=== PATIENT | male | born 1995 | race Caucasian/White ===

== ENCOUNTER 2022-10-27 08:24 | Outpatient (REF) | payer OTHER, SELFPAY ==
[2022-10-27 10:59] LABS: Alanine Aminotransferase 29 U/L (0-40); Albumin Level 4.8 g/dL (3.5-5.0); Alkaline Phosphatase 44 U/L (39-117); Anion Gap 12 (12-20); Aspartate Amino Transferase 22 U/L (5-37); Blood Urea Nitrogen 23 mg/dL (9-16); Calcium 9.9 mg/dL (8.4-10.2); Carbon Dioxide 28 mmol/L (22-29); Chloride 102 mmol/L (96-108); Cholesterol 220 mg/dL; Estimated Glomerular Filt Rate > 60; Glucose Fasting 86 mg/dL (60-99); HDL Cholesterol 77 mg/dL; LDL Cholesterol Calculated 134 mg/dl; Potassium 4.8 mmol/L (3.3-5.1); Sodium 137 mmol/L (135-145); Total Protein 7.2 g/dL (6.5-8.0); Triglycerides 49 mg/dL
[2022-10-27 11:10] LABS: Appearance Urine Turbid; Color Urine Yellow; Glucose Urine UA Negative (Negative); Leukocyte Esterase Urine Negative (Negative); Nitrite Urine Negative (Negative); Specific Gravity - Urine 1.025 (1.005-1.025); Urine Blood Negative (Negative); Urine Ketones Negative (Negative); Urine Protein Negative (Neg-Trace)
[2022-10-27 11:29] LABS: Bilirubin Total 1.4 mg/dL (0.0-1.0); TSH reflex Free T4 1.28 uIU/mL (0.32-4.0)
[2022-10-28 09:08] LABS: Syphilis Screen Nonreactive (Nonreactive)
[2022-10-28 09:22] LABS: HBS Num1 0.27 mIU/mL (0-7.99); HBc Num1 0.08 S/CO (0.00-0.79); HIV AB/AG Nonreactive (Nonreactive); HIV Num 1 0.07 S/CO (0.00-0.99); Hepatitis B Core Antibody Nonreactive (Nonreactive); Hepatitis B Surface Antigen Negative (Negative); ~HepC Num1 0.16 S/CO (0.00-0.79); ~Hepatitis B Surface Antibody NONREACTIVE (Nonreactive); ~Hepatitis C Antibody Nonreactive (Nonreactive)
== END 2022-10-27 08:25 | disposition home or self-care (01) ==
LOC: HO.WFDLDS 08:24
PROVIDERS: Visit Provider Family Medicine
DX: Z00.00 Encounter for general adult medical examination without abnormal findings (principal); Z11.4 Encounter for screening for human immunodeficiency virus [HIV]; Z11.3 Encounter for screening for infections with a predominantly sexual mode of transmission
CPT/HCPCS: 36415; 80053; 80061; 81003; 84443; 86704; 86706; 86780; 86803; 87340; 87389

== ENCOUNTER 2023-08-18 15:31 | Outpatient (AMB) | payer OTHER, SELFPAY ==
--- NOTE | 2023-08-18 15:36 | MHC.PC.OV ---
Vital Signs 08/18/23 15:37 Height 5 ft 10 in Weight 171 lb 3 oz BMI 24.6 BP 114/70 Blood Pressure Location Rt brachial Position Sitting Respiration 13 Pulse 53 Pulse Source Pulse Oximeter Temp 97.7 F Temp Source Temporal Artery Scan Pulse Oximetry (%) 99 Oxygen Delivery Method Room Air Intake Visit Reasons: Back Pain Dining Room Host/Hostess Required: No Accompanied by: Self / Same As Patient Allergies No Known Allergies Allergy (Verified 08/18/23 16:07) Medication List - Last Reconciled 08/18/23 by Pino Hansen CNP No Known Home Meds Tobacco use date assessed: 08/18/23 Dental Screening Dental Screen Date: 08/18/23 Did you have a dental visit in the last 12 months?: Yes Did you have a dental problem in the last 6 months where you did not have access to dental care?: No Was dental information given to patient?: Patient has dentist HPI HPI Comments History of Present Illness Details 28-year-old male presents with intermittent complaints of lower left back pain. He notes that the pain has been ongoing off and on for the past 2 years. He states that the pain has progressively worsened in the past 3-4 weeks. His pain is worse with lifting objects or prolonged repetitive movements. He states that he has not been taking pain medication. He denies tingling, numbness, or loss of sensation. He denies consistent heavy lifting. He denies fall, injury, or trauma. He was evaluated by his PCP for similar pain in November 2022. 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 Andrew L. Jackelyn Camarena, Roman Navarro and colleagues, with an educational nicki from [employer]. Review of Systems Const Details: Const Denies chills, Denies fatigue, Denies fever(s), Denies headache(s) and Denies weakness ENT Denies dizziness and Denies headache(s) Card Denies chest pain, Denies lightheadedness, Denies dyspnea and Denies other (Palpitations) Resp Denies cough, Denies dyspnea, Denies wheezing and Denies other ( shortness of breath) GI Denies abdominal pain, Denies melena, Denies hematochezia, Denies change in bowel habits, Denies dyspepsia and Denies nausea Denies hematuria and Denies dysuria Musc Reports as per HPI Skin/Breast Denies rash, Denies unusual bruising and Denies wounds Neuro Denies abnormal gait, Denies dizziness, Denies headache(s), Denies memory loss, Denies numbness, Denies Sensory deficit (Neuro), Denies tingling and Denies weakness Psych Denies anxiety, Denies depression, Denies memory loss Endo Denies cold intolerance, Denies fatigue, Denies heat intolerance, Denies polydipsia and Denies polyuria Aller/Immun Denies wheezing Physical exam (Primary Care) Vital Signs: Last Vital Signs Temp 97.7 F 08/18/23 15:37 Pulse 53 08/18/23 15:37 Resp 13 08/18/23 15:37 BP 114/70 08/18/23 15:37 Pulse Ox 99 08/18/23 15:37 Oxygen Delivery Method Room Air 08/18/23 15:37 BMI result Body Mass Index 24.6 Tobacco/Smoking Status: Tobacco use Status Tobacco use date assessed 08/18/23 08/18/23 15:44 Patient Tobacco Use Status Never used Tobacco 08/18/23 15:44 e-Cigarette/Vaping Use Never Used 08/18/23 15:44 Thrive Assessment: Date of Thrive Assessment Date Thrive assessed 11/03/22 08/18/23 15:44 Const Other: General: no acute distress and well developed Nutritional Appearance: well nourished Orientation/consciousness: patient oriented x3 HENMT Head: Yes normocephalic and Yes atraumatic Eyes General: appearance normal, both eyes and all related structures Pupils: Equal, round and reactive pupils present EOM: EOMs intact bilaterally Resp Effort & Inspection: normal respiratory effort Auscultation: clear to auscultation bilaterally Cardio Rate: regular rate Rhythm: regular rhythm Heart sounds: S1 normal heart sound present, S2 normal heart sound present, no gallops, no murmurs and no rubs GI Palpation (GI): No Abdominal aortic bruit present, Soft to palpation, nontender, No hepatosplenomegaly present and No Rebound tenderness present Auscultation: normal bowel sounds General: Yes no CVA tenderness Back/Spine/Pelvis Back: no CVA tenderness Cervical Spine: cervical ROM normal and No Cervical spine tenderness Thoracic/Lumbar Spine: thoraco-lumbar ROM normal, No pain with thoraco-lumbar ROM, No thoracic spinal tenderness and tenderness to palpation of the lumbar spine and left lower back Extrem General: Yes normal to inspection, No edema and No calf tenderness Negative straight leg raise bilaterally Skin General: warm and dry. Normal skin color. Normal skin turgor Lesions: no lesions Rashes: no rashes Trauma: no lacerations or abrasions Wounds: no wounds Nails: normal Neuro General: patient oriented x3, gait normal and no focal neuro deficit Cranial nerves: Yes Equal, round and reactive pupils present Cognition (Neuro): normal cognition Gait exam (Neuro): Normal gait present Sensory Exam: No Sensory deficit (Neuro) Psych Appearance: grossly normal Affect: normal affect Attitude: cooperative Thought process: Normal thought process present Assessment and Plan Assessment & Plan (1) Chronic back pain: Code(s): M54.9 - Dorsalgia, unspecified; G89.29 - Other chronic pain Qualifiers: Back pain location: low back pain Back pain laterality: left Sciatica presence: without sciatica Qualified Code(s): M54.50 - Low back pain, unspecified; G89.29 - Other chronic pain Plan: Reports chronic back pain which has worsened in the past 3-4 weeks Tenderness to palpation of the lumbar spine and left lower back Likely muscular pain although disc disease and arthritis is possible Naproxen ordered. Take as prescribed Stretching and warm/cool compresses encouraged Referred to physical therapy Follow-up with PCP if symptoms persist or worsen Verbalized understanding and agreed with treatment plan. Orders: Orders PT Evaluation and Treatment Today G89.29 - Other chronic pain, M54.9 - Dorsalgia, unspecified Medications: New naproxen 500 mg PO BID PRN 60 tabs 0RF pain Coding Level of Care Code Est Pt Level 4 (90473) Diagnoses Chronic left-sided low back pain without sciatica M54.50; G89.29 Back pain location: low back pain Back pain laterality: left Sciatica presence: without sciatica
[2023-08-18 15:37] VITALS: BP 114/70; PULSE 53; RESP 13; TEMP 36.5; O2SAT 99; BMI 24.6
== END 2023-08-18 16:21 | disposition home or self-care (01) ==
PROVIDERS: PCP Family Medicine; Visit Provider Nurse Practitioner Family
DX: M54.50 Low back pain, unspecified (principal); G89.29 Other chronic pain
CPT/HCPCS: 99214

== ENCOUNTER 2023-11-13 15:47 | Outpatient (AMB) | payer OTHER, SELFPAY ==
[2023-11-13 16:03] VITALS: BP 120/70; PULSE 74; RESP 13; TEMP 36.6; O2SAT 99; BMI 27.0
--- NOTE | 2023-11-13 16:03 | A.OFFPC_ITS ---
Vital Signs 11/13/23 16:03 Height 5 ft 10 in Weight 188 lb BMI 27.0 BP 120/70 Blood Pressure Location Rt brachial Position Sitting Respiration 13 Pulse 74 Pulse Source Pulse Oximeter Temp 97.8 F Temp Source Temporal Artery Scan Pulse Oximetry (%) 99 Oxygen Delivery Method Room Air Intake Visit Reasons: CPE with f/u labs and health maint Italian Lecturer Required: No Accompanied by: Self / Same As Patient Allergies No Known Allergies Allergy (Verified 11/13/23 16:07) Tobacco use date assessed: 11/13/23 Dental Screening Dental Screen Date: 11/13/23 Did you have a dental visit in the last 12 months?: Yes Did you have a dental problem in the last 6 months where you did not have access to dental care?: No Was dental information given to patient?: Patient has dentist HPI CPE with f/u labs and health maint HPI Details 28 y/o male presents for a CPE with f/u labs and health maintenance. No recent labs to review. Weight has increased from 171 lbs to 188 lbs since office visit in August. He reports he goes to the gym 3-5x a week and plays hockey every week. 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 1. Little interest or pleasure in doing things: not at all 2. Feeling down, depressed, or hopeless: not at all 3. Trouble falling or staying asleep, or sleeping too much: not at all 4. Feeling tired or having little energy: not at all 5. Poor appetite or overeating: not at all 6. Feeling bad about yourself - or that you are a failure or have let yourself or your family down: not at all 7. Trouble concentrating on things, such as reading the newspaper or watching television: not at all 8. Moving or speaking so slowly that other people could have noticed. Or the opposite - being so fidgety or restless that you have been moving around a lot more than usual: not at all 9. Thoughts that you would be better off or of hurting yourself in some way: not at all Total score: 0 Depression Screening Interpretation: Negative Depression Screening Done: Yes Source: Developed by Drs. Andrew Camarena, Jackelyn Rendon, Roman Navarro and colleagues, with an educational nicki from [employer]. Thrive Questionnaire Date Thrive assessed: 11/13/23 I am a: Patient What is your living situation today?: I have a steady place to live Within the past 12 months, did the food you bought not last and you didn't have the money to get more?: Never true Within the past 12 months, did you worry whether your food would run out before you got money to buy more?: Never true Do you have trouble paying for medicines?: No Do you have trouble getting transportation to medical appointments?: No Do you have trouble paying your heating and electricity bill?: No Do you have trouble taking care of your child, family member or friend?: No Do you have trouble with day-to-day activities such as bathing, preparing meals, shopping, managing finances, etc.?: No Are you currently unemployed and looking for a job?: No Are you interested in more education?: No Please select the resources that you would like help with: None Currently or been in a relationship where the following occur: no concerns reported AUDIT C Alcohol Use Questionnaire (AUDIT-C) 1. How often do you have a drink containing alcohol?: 2-4 times a month 2. How many drinks containing alcohol do you have on a typical day when you are drinking?: 5 or 6 3. How often do you have six or more drinks on one occasion?: Less than monthly Total Score: 5 MARI-7 AMB Questionnaire MARI-7 Date MARI - 7 assessed: 11/13/23 Feeling nervous, anxious, or on edge: 0 = Not at all Not being able to stop or control worryin = Not at all Worrying too much about different things: 0 = Not at all Trouble relaxin = Not at all Being so restless that it is hard to sit still: 0 = Not at all Becoming easily annoyed or irritable: 0 = Not at all Feeling afraid as if something awful might happen: 0 = Not at all Total MARI-7 score (0-4 normal; 5-9 mild; 10-14 moderate; 15-21 severe): 0 Source: Developed by Drs. Andrew Camarena, Jackelyn Rendon, Roman Navarro and colleagues, with an educational nicki from [employer]. MARI-7 Assessment Billing MARI-7 Assessment Tool: MARI-7 Assessment 81851 Review of Systems Const Denies chills, Denies fatigue, Denies fever(s), Denies headache(s) and Denies weakness Eyes Denies change in vision ENT Denies dizziness, Denies headache(s), Denies hearing loss, Denies nasal congestion, Denies sinus pain, Denies sinus pressure and Denies sore throat Card Denies chest pain, Denies lightheadedness, Denies dyspnea and Denies other (palpitations) Resp Denies cough, Denies dyspnea and Denies wheezing GI Denies abdominal pain, Denies melena, Denies hematochezia, Denies change in bowel habits, Denies dyspepsia and Denies nausea Denies hematuria and Denies dysuria Musc Denies abnormal gait, Denies myalgias, Denies arthralgias, Denies numbness and Denies tingling Skin/Breast Denies rash, Denies unusual bruising and Denies wounds Neuro Denies abnormal gait, Denies dizziness, Denies headache(s), Denies memory loss, Denies numbness, Denies Sensory deficit (Neuro), Denies tingling and Denies weakness Psych Denies anxiety, Denies depression and Denies memory loss Endo Denies cold intolerance, Denies fatigue, Denies heat intolerance, Denies polydipsia and Denies polyuria Arthur/Lymph Denies easy bleeding and Denies easy bruising Aller/Immun Denies wheezing Physical exam (Primary Care) Vital Signs: Last Vital Signs Temp 97.8 F 11/13/23 16:03 Pulse 74 11/13/23 16:03 Resp 13 11/13/23 16:03 BP 120/70 11/13/23 16:03 Pulse Ox 99 11/13/23 16:03 Oxygen Delivery Method Room Air 11/13/23 16:03 BMI result Body Mass Index 27.0 Tobacco/Smoking Status: Tobacco use Status Tobacco use date assessed 11/13/23 11/13/23 16:11 Patient Tobacco Use Status Never used Tobacco 11/13/23 16:11 e-Cigarette/Vaping Use Never Used 11/13/23 16:11 PHQ-9: PHQ-9 Score PHQ-9: Total score 0 11/13/23 16:11 Depression Screening Interpretation: Negative Thrive Assessment: Date of Thrive Assessment Date Thrive assessed 11/13/23 11/13/23 16:11 Currently or been in a relationship where the following occur: no concerns reported Const General: no acute distress, well developed, alert and awake Nutritional Appearance: well nourished Orientation/consciousness: patient oriented x3 HENMT Head: Yes normocephalic and Yes atraumatic Ears: hearing grossly normal bilaterally and TM's normal bilaterally General nose exam: Normal external nose present and Normal nares present Mouth: Normal oral and palatal mucosa present and moist mucous membranes Teeth and gingiva: dentition normal Throat: Yes posterior oropharynx normal Eyes General: appearance normal, both eyes and all related structures Pupils: Equal, round and reactive pupils present and Pupil accommodation reflex normal EOM: EOMs intact bilaterally Neck Neck: Yes normal visual inspection, Yes no lymphadenopathy and Yes trachea midline Thyroid: Thyroid normal Carotids: no bruits Lymphatic: no lymphadenopathy noted Chest Chest palpation & inspection: normal inspection of the chest Resp Effort & Inspection: normal respiratory effort Auscultation: clear to auscultation bilaterally Cardio Rate: regular rate Rhythm: regular rhythm Heart sounds: S1 normal heart sound present, S2 normal heart sound present, no gallops, no murmurs and no rubs Bruits: no abdominal aortic bruits and no carotid bruits GI Palpation (GI): No Abdominal aortic bruit present, Soft to palpation, nontender, No hepatosplenomegaly present and No Rebound tenderness present Auscultation: normal bowel sounds General: Yes no CVA tenderness Back/Spine/Pelvis Back: no CVA tenderness Cervical Spine: cervical ROM normal and No Cervical spine tenderness Thoracic/Lumbar Spine: thoraco-lumbar ROM normal, No pain with thoraco-lumbar ROM, No thoracic spinal tenderness and No lumbar spinal tenderness Skin Lesions: no lesions Rashes: no rashes Trauma: no lacerations or abrasions Wounds: no wounds Nails: normal Neuro General: patient oriented x3 Cranial nerves: Yes Equal, round and reactive pupils present Cognition (Neuro): normal cognition Gait exam (Neuro): Normal gait present Motor exam (neuro): 5/5 motor strength present throughout Sensory Exam: No Sensory deficit (Neuro) Deep tendon reflexes (DTR's): Right patellar reflex intensity grade: 2+ and Left patellar reflex intensity grade: 2+ Extrem Other: Small follicular abscess, R axilla General: Yes normal to inspection and No edema Psych Appearance: grossly normal Affect: normal affect Attitude: cooperative Thought process: Normal thought process present Assessment and Plan Assessment & Plan (1) Adult general medical exam: Code(s): Z00.00 - Encounter for general adult medical examination without abnormal findings Plan: 28-year-old?male?presents?for?complete?physical?exam Encouraged?ongoing?healthy?diet?with?active?lifestyle?and?plenty?of?exercise (2) Skin abscess: Code(s): L02.91 - Cutaneous abscess, unspecified Plan: Small?superficial?skin?abscess?or?follicular?abscess. He?can?use?hot?compresses If?worsens?or?not?improving?he?can?call?or?return?to?office. Orders: Orders Comprehensive [place]. Panel Fast Today Z00.00 - Encounter for general adult medical examination without abnormal findings Lipid Panel Today Z00.00 - Encounter for general adult medical examination without abnormal findings Microalbumin, Random (w Creat) Today I10 - Essential (primary) hypertension UA and rflx microscopic Today Z00.00 - Encounter for general adult medical examination without abnormal findings TSH reflex Free T4 Today Z00.00 - Encounter for general adult medical examination without abnormal findings Coding Level of Care Code Est Pt Level 3 (80207) Est Pt Prev Care 18-39y(71467) Diagnoses Adult general medical exam Z00.00 Skin abscess L02.91 Additional Codes MARI-7 Assessment Billing - MARI-7 Assessment Tool: MARI-7 Assessment 56420 ([id number])
== END 2023-11-13 16:40 | disposition home or self-care (01) ==
PROVIDERS: Visit Provider Family Medicine
DX: Z00.00 Encounter for general adult medical examination without abnormal findings (principal); L02.91 Cutaneous abscess, unspecified
CPT/HCPCS: 99395

== ENCOUNTER 2025-05-23 09:35 | Outpatient (AMB) | payer OTHER, SELFPAY ==
--- OUTSIDE RECORDS SUMMARY | 2025-05-23 09:42 | XMS_ITS | Encounter Summary ---
Author Organization [facility] Address [address] [place] [id number] Phone Care Team Providers Care Paper Handler Name Role Phone Iona Munson MD Primary Care Provider [phone] Encounter Details Date Type Department Care Team (Late st Contact Info) Description 06/22/2017 Conversion Encounter [facility] [place] [address] [place] [address] Social History Tobacco Use Types Packs/Day Years Used Date Smoking Tobacco: Never Comments:Never smoker Sex and Gender Information Value Date Recorded Sex Assigned at Not on file Legal Sex Male 4:50 PM EDT Gender Identity Not on file Sexual Orientation Not on file documented as of this encounter Plan of Treatment Not on file documented as of this encounter Visit Diagnoses Not on filedocumented in this encounter Care Teams Paper Handler Relationship Specialty Start Date End Date Iona Munson MD [address] [place] [address] PCP - General 06/16/17 02/14/23 documented as of this encounter
--- NOTE | 2025-05-23 09:46 | A.OFFPC_ITS ---
Vital Signs 05/23/25 09:57 Height 5 ft 9 in Weight 172 lb 2 oz BMI 25.4 BP 110/70 Blood Pressure Location Rt brachial Position Sitting Respiration 14 Pulse 55 Pulse Source Pulse Oximeter Temp 97.8 F Temp Source Oral Pulse Oximetry (%) 98 Oxygen Delivery Method Room Air Intake Visit Reasons: Feels heart rate is fast Intake Note: patient is here to follow up on palpatations Advertisement Distributor Required: No Allergies No Known Allergies Allergy (Verified 05/23/25 09:51) Tobacco use date assessed: 11/13/23 Dental Screening Dental Screen Date: 11/13/23 HPI Feels heart rate is fast HPI Details 30 y/o male presents today with complain ts of palpitations. Blood pressure today 110/70, 55p. He describes palpitations throughout the day. He goes to the gym in the morning before work and usually goes to the treadmill at night. He notes he sometimes experiences symptoms in the morning but not on the treadmill. Denies any symptoms of sleep apnea. 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 1. Little interest or pleasure in doing things: not at all 2. Feeling down, depressed, or hopeless: not at all 3. Trouble falling or staying asleep, or sleeping too much: not at all 4. Feeling tired or having little energy: not at all 5. Poor appetite or overeating: not at all 6. Feeling bad about yourself - or that you are a failure or have let yourself or your family down: not at all 7. Trouble concentrating on things, such as reading the newspaper or watching television: not at all 8. Moving or speaking so slowly that other people could have noticed. Or the opposite - being so fidgety or restless that you have been moving around a lot more than usual: not at all 9. Thoughts that you would be better off or of hurting yourself in some way: not at all Total score: 0 Source: Developed by Drs. Andrew Camarena, Jackelyn Rendon, Roman Navarro and colleagues, with an educational nicik from [employer]. Thrive Questionnaire Date Thrive assessed: 05/20/25 I am a: Patient What is your living situation today?: I have a steady place to live Within the past 12 months, did the food you bought not last and you didn't have the money to get more?: Never true Within the past 12 months, did you worry whether your food would run out before you got money to buy more?: Never true Do you have trouble paying for medicines?: No Do you have trouble getting transportation to medical appointments?: No Do you have trouble paying your heating and electricity bill?: No Do you have trouble taking care of your child, family member or friend?: No Do you have trouble with day-to-day activities such as bathing, preparing meals, shopping, managing finances, etc.?: No Are you currently unemployed and looking for a job?: No Are you interested in more education?: No Please select the resources that you would like help with: None Currently or been in a relationship where the following occur: No concerns reported THRIVE Score: 0 AUDIT C Alcohol Use Questionnaire (AUDIT-C) 1. How often do you have a drink containing alcohol?: Monthly or less 2. How many drinks containing alcohol do you have on a typical day when you are drinking?: 7 to 9 3. How often do you have six or more drinks on one occasion?: Less than monthly Total Score: 5 MARI-7 AMB Questionnaire MARI-7 Date MARI - 7 assessed: 11/13/23 Feeling nervous, anxious, or on edge: 0 = Not at all Not being able to stop or control worryin = Not at all Worrying too much about different things: 1 = Several days Trouble relaxin = Not at all Being so restless that it is hard to sit still: 0 = Not at all Becoming easily annoyed or irritable: 0 = Not at all Feeling afraid as if something awful might happen: 0 = Not at all Total MARI-7 score (0-4 normal; 5-9 mild; 10-14 moderate; 15-21 severe): 1 Source: Developed by Drs. Andrew Camarena, Jackelyn Rendon, Roman Navarro and colleagues, with an educational nicki from [employer]. Review of Systems Const Denies chills, Denies fatigue, Denies fever(s), Denies headache(s) and Denies weakness ENT Denies dizziness and Denies headache(s) Card Denies chest pain, Denies lightheadedness, Denies dyspnea and Denies other (Palpitations) Resp Denies cough, Denies dyspnea, Denies wheezing and Denies other ( shortness of breath) Musc Denies numbness and Denies tingling Neuro Denies dizziness, Denies headache(s), Denies numbness, Denies tingling, Denies paresthesias and Denies weakness Psych Denies anxiety and Denies depression Endo Denies fatigue Aller/Immun Denies wheezing Physical exam (Primary Care) Vital Signs: Last Vital Signs Temp 97.8 F 05/23/25 09:57 Pulse 55 05/23/25 09:57 Resp 14 05/23/25 09:57 BP 110/70 05/23/25 09:57 Pulse Ox 98 05/23/25 09:57 Oxygen Delivery Method Room Air 05/23/25 09:57 BMI result Body Mass Index 25.4 Tobacco/Smoking Status: Tobacco use Status Tobacco use date assessed 11/13/23 05/23/25 09:48 Patient Tobacco Use Status Never used Tobacco 05/23/25 09:48 e-Cigarette/Vaping Use Never Used 05/23/25 09:48 PHQ-9: PHQ-9 Score PHQ-9: Total score 0 05/23/25 10:22 Thrive Assessment: Date of Thrive Assessment Date Thrive assessed 05/20/25 05/23/25 09:48 Currently or been in a relationship where the following occur: No concerns reported Const General: no acute distress and well developed Nutritional Appearance: well nourished Orientation/consciousness: patient oriented x3 HENMT Head: Yes normocephalic and Yes atraumatic Eyes General: appearance normal, both eyes and all related structures Pupils: Equal, round and reactive pupils present EOM: EOMs intact bilaterally Resp Effort & Inspection: normal respiratory effort Auscultation: clear to auscultation bilaterally Cardio Rate: regular rate Rhythm: regular rhythm Heart sounds: S1 normal heart sound present, S2 normal heart sound present, no gallops, no murmurs and no rubs Neuro General: patient oriented x3 and gait normal Cranial nerves: Yes Equal, round and reactive pupils present Psych Affect: normal affect Coding Level of Care Code Est Pt Level 3 (15165) Diagnoses Palpitation R00.2 Assessment & Plan Assessment & Plan (1) Palpitation: Code(s): R00.2 - Palpitations Category: Medical Plan: Intermittent palpitations. EKG today shows mild sinus bradycardia 56 beats per minute, normal axis, normal intervals, no ST-T-wave changes Cardiac exam is normal today. He does note some increased stress Advised he avoid caffeine, alcohol and energy drinks. Decrease stress and work at good quality sleep Hydrate well Checking labs including CBC and TSH Checking Holter monitor test Will follow-up by telemedicine Orders: Orders Complete Blood Count Auto Diff Today R00.2 - Palpitations, Z00.00 - Encounter for general adult medical examination without abnormal findings TSH reflex Free T4 Today R00.2 - Palpitations, Z00.00 - Encounter for general adult medical examination without abnormal findings Basic Metabolic Panel Today R00.2 - Palpitations, Z00.00 - Encounter for general adult medical examination without abnormal findings ECG holter monitor 48 hour Today R00.2 - Palpitations
[2025-05-23 09:57] VITALS: BP 110/70; PULSE 55; RESP 14; TEMP 36.6; O2SAT 98; BMI 25.4
== END 2025-05-23 10:37 | disposition home or self-care (01) ==
LOC: HO.HMCFM 09:36
PROVIDERS: PCP Family Medicine; Visit Provider Family Medicine
DX: R00.2 Palpitations (principal)

== ENCOUNTER 2025-05-23 10:55 | Outpatient (REF) | payer OTHER, SELFPAY ==
[2025-05-23 13:57] LABS: MANUAL DIFF FLAG NO
[2025-05-23 14:02] LABS: Hematocrit 39.0 % (42.0-52.0); Hemoglobin 13.5 g/dl (14.0-18.0); Imm Gran Abs Auto 0.01 X10*3/uL (0.00-0.03); Imm Gran Pct Auto 0.2 % (0.0-0.4); Lymphocytes Absolute Auto 1.7 X10*3/uL (1.2-4.9); Mean Corpuscular HGB Conc 34.6 g/dl (31.0-36.0); Mean Corpuscular Hemoglobin 29.9 pg (27.0-33.0); Mean Corpuscular Volume 86.3 fL (80.0-98.0); NRBC Abs Auto 0.000 X10*3/uL (0.0-0.012); NRBC Pct Auto 0.0 /100WBC (0.0-0.2); Platelet Count 269 X10*3/uL (160-400); Red Blood Count 4.52 X10*6/uL (4.60-5.80); White Blood Count 6.0 X10*3/uL (4.8-10.8)
[2025-05-23 14:49] LABS: Anion Gap 10 (12-20); Blood Urea Nitrogen 28 mg/dL (9-16); Calcium 9.3 mg/dL (8.4-10.2); Carbon Dioxide 27 mmol/L (22-29); Chloride 107 mmol/L (96-108); Estimated Glomerular Filt Rate > 60; Potassium 3.9 mmol/L (3.3-5.1); Sodium 140 mmol/L (135-145)
== END 2025-05-23 10:56 | disposition home or self-care (01) ==
LOC: HO.WFDLDS 10:55
PROVIDERS: Visit Provider Family Medicine
DX: Z00.00 Encounter for general adult medical examination without abnormal findings (principal); R00.2 Palpitations
CPT/HCPCS: 36415; 80048; 84443; 85025

== ENCOUNTER → 2025-07-01 14:45 | Outpatient (REF) | payer OTHER, SELFPAY ==
--- NOTE | 2025-07-01 14:48 | HM_ITS ---
* Total monitoring time 2 days. * Underlying rhythm is sinus with an average rate of 67/Min. * Very rare ventricular ectopy. * No significant pauses or high-grade AV blocks. * Patient marker used with sinus rhythm. MTDD
--- OUTSIDE RECORDS SUMMARY | 2025-07-01 15:38 | XMS_ITS | Clinical Summary ---
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 Role Phone Unavailable Primary Care Provider Unavailabl e Immunizations Immunization Administration Dates Next Due DTP 09/04/1995, 4,1994,04/06 DTaP 5 02/16/1999 Hep A, ped/adol 06/29/2011 Hep B, ped/adol 1994,1994,1994 Hib (PRP-T) 06/05/1995, 4,1994,04/06 Influenza Split 06/29/2011 Influenza, injectable, trivalent 08/05/2009 MMR 02/09/1998,06/05/1995 Meningococcal Conj (Menactra) MCV4P 06/15/2006 OPV 02/16/1999, 4,1994,04/06 Td (adult) (MBL), 2 Lf tetan us toxoid, PF, adsorbed 04/26/2005 Tdap 01/17/2008 Varicella 02/09/1998 Family History Relation Name Status Comments Cousin Alive cousin: Renal d isease Father Alive Father: Hyperli pidemia Mother Alive Mother: Alive a nd well Other Family history of Sudden /VT under age 55 Paternal Grandfather Alive Paterna l uncle: Renal disease Sister Alive Sister: Alive a nd well Social History Tobacco Use Types Packs/Day Years Used Date Smoking Tobacco: Never Comments:Never smoker Sex and Gender Information Value Date Recorded Sex Assigned at Not on file Legal Sex Male 4:50 PM EDT Gender Identity Not on file Sexual Orientation Not on file Last Filed Vital Signs Vital Sign Reading Time Taken Comments Blood Pressure 100/70 11/16/2012 12:00 AM EST Pulse - - Temperature 36.1 C (97 F) 10/17/2011 12:00 AM EST Respiratory Rate - - Oxygen Saturation - - Inhaled Oxygen Concentration - - Weight 73.5 kg (162 lb) 11/16/2012 12:00 AM EST Height 172.7 cm (5' 8 ) 11/16/2012 12:00 AM EST Body Mass Index 24.63 11/16/2012 12:00 AM EST Plan of Treatment Health Maintenance Due Date Last Done Comments Varicella Vaccines (2 of 2 - 2-dose childhood series) 05/04/1998 02/09/1998 Hepatitis A Vaccines (2 of 2 - 2-dose series) 12/30/2011 06/29/2011 DTaP,Tdap,and Td Vaccines (7 - Td or Tdap) 01/16/2018 01/17/2008, 04/26/2005, 02/16/1999, Additional history exists HPV Vaccines (1 - 3-dose SCDM series) 2021 COVID-19 Vaccine ( season) 2024 Influenza Vaccines (#1) 2025 06/29/2011, 08/05 Hepatitis B Vaccines Completed 1994, 1994, 1994 HIB Vaccines Completed 06/05/1995, 01/1994, 1994, Additional history exists MMR Vaccines Completed 02/09/1998, 06/05/1995 IPV Vaccines Completed 02/16/1999, 01/1994, 1994, Additional history exists Meningococcal Vaccine Aged Out 06/15/2006 No eleno jett eligible based on patient's age to complete this topic Men B Vaccine Aged Out No longer elig ible based on patient's age to complete this topic Pneumococcal Vaccine Aged Out No long er eligible based on patient's age to complete this topic
--- OUTSIDE RECORDS SUMMARY | 2025-07-01 15:38 | XMS_ITS | Encounter Summary ---
Author Organization [facility] Address [address] [place] [id number] Phone Care Team Providers Care Manager Storage Name Role Phone Iona Munson MD Primary Care Provider [phone] Encounter Details Date Type Department Care Team (Late st Contact Info) Description 06/22/2017 Conversion Encounter [facility] [place] [address] [place] [address] Social History Tobacco Use Types Packs/Day Years [...] on filedocumented in this encounter Care Teams Manager Storage Relationship Specialty Start Date End Date Iona Munson MD [address] [place] [address] PCP - General 06/16/17 02/14/23 documented as of this encounter
== END ==
LOC: HO.CARD 14:45
PROVIDERS: PCP Family Medicine; Visit Provider Family Medicine
DX: R00.2 Palpitations (principal)
CPT/HCPCS: 93225

== ENCOUNTER → 2025-07-01 14:48 | Outpatient (BNV) | payer OTHER, SELFPAY | PROVIDERS: PCP Family Medicine; Visit Provider Internal Medicine | DX: I49.3 Ventricular premature depolarization (principal) | CPT/HCPCS: 93227 ==